=== PATIENT | male | born 1935 | race African-American/Black ===

== ENCOUNTER 2021-03-03 04:46 | Emergency (ER) | payer MEDICARE ==
[~2021-03-03] VITALS: Ht 162.6 cm; Wt 59.0 kg
[2021-03-03 06:05] LABS: BASOPHILS % 1.2 % (0.0-2.0); EOSINOPHILS % 0.9 % (0.0-5.0); HEMOGLOBIN. 12.3 g/dL (14.0-18.0); LYMPHOCYTES % 20.4 % (20.0-50.0); MEAN CORPUSCULAR HEMOGLOBIN 30.8 pg (28.0-32.0); MEAN CORPUSCULAR VOLUME 93.2 fL (80.0-94.0); MEAN PLATELET VOLUME 8.4 fl (7.4-10.4); MONOCYTES % 6.7 % (2.0-8.0); NEUTROPHILS % 70.8 % (40.0-76.0); PLATELET 264 x1000/uL (130-400); RED BLOOD CELL COUNT 3.97 mill/uL (4.7-6.1); RED CELL DISTRIBUTION WIDTH 15.3 % (11.6-14.6)
[2021-03-03 06:13] LABS: CHLORIDE 111 mEq/L (98-107)
[2021-03-03] MEDS ORDERED: MORPHINE SULFATE 4 MG/ML CPJ (NOT FOR IM USE) IV ONE (06:15)
[2021-03-03] MEDS ORDERED: HYDR-4001 MT (10:25)
[2021-03-03 10:46] VITALS: BP 183/65
== END 2021-03-03 10:47 | disposition home or self-care (01) ==
LOC: ER 05:09
DX: S09.8XXA Other specified injuries of head, initial encounter (principal); S49.81XA Other specified injuries of right shoulder and upper arm, initial encounter; S79.812A Other specified injuries of left hip, initial encounter; S00.81XA Abrasion of other part of head, initial encounter; I10 Essential (primary) hypertension; W01.0XXA Fall on same level from slipping, tripping and stumbling without subsequent striking against object, initial encounter; Y93.89 Activity, other specified; Y92.481 Parking lot as the place of occurrence of the external cause; Z88.6 Allergy status to analgesic agent
CPT/HCPCS: 36415; 70450; 70486; 71045; 73030; 73060; 73502; 73552; 73560; 80053; 85025; 93005; 96374; 99285; J2270